=== PATIENT | female | born 1985 | race Caucasian/White ===

== ENCOUNTER 2020-02-04 16:24 | Emergency (ER) | payer SELFPAY ==
[~2020-02-04] VITALS: Ht 175 cm; Wt 97.0 kg
[~2020-02-04 16:24] MED LIST: CEFU500T5 PO; CYCL10TA9 PO; FRS325T; NAPR-1071 PO; NAPR-243 PO; PRD20T PO; TEMA7.5C2 PO; TRM50T PO
[2020-02-04] MEDS ORDERED: KETOROLAC 30 MG/ML VIAL ONE (17:15)
[2020-02-04] MEDS ORDERED: fentaNYL INJECTION 100 MCG/2 ML AMP ONE (17:15)
--- NOTE | 2020-02-04 17:26 | ED Abdominal Pain ---
General Chief Complaint: Abdominal/GI Problems Stated Complaint: ABD SWELLING/PAIN Source of Information: Patient Exam Limitations: No Limitations History of Present Illness Date Seen by Provider: Feb 04, 2020 Time Seen by Provider: 17:24 Initial Comments To ER by EMS to ER by private vehicle from home with reports of severe lower abdominal pain. This was mild upon awakening this morning and got progressively worse throughout the day. Last food intake was 11 AM. No nausea or vomiting. No history of this, no history of abdominal surgeries. Timing/Duration: 12-24 Hours Severity/Quality: Moderate Location: Suprapubic Radiation: No Radiation Activities at Onset: None Allergies and Home Medications Allergies Coded Allergies: NKANo Known Allergies (Unverified Allergy, Mild, 07/23/08) No Known Drug Allergies (Unverified , 04/12/08) Home Medications Cefuroxime Axetil 500 Mg Tablet, 500 MG PO BID Prescribed by: EMIR BELLAMY on 02/04/201816 Cyclobenzaprine HCl 10 Mg Tablet, 10 MG PO Q8H, (Reported) Hyoscyamine Sulfate 0.125 Mg Tab.subl, 0.125 MG SL Q4H PRN for abdominal pain Prescribed by: EMIR BELLAMY on 02/04/201816 Naproxen 500 Mg Tablet, 500 MG PO BID Prescribed by: DEWEY MARIN on 08/31/151928 Prednisone 20 Mg Tab, 40 MG PO DAILY Prescribed by: DEWEY MARIN on 08/31/151928 Tramadol HCl 50 Mg Tablet, 50 MG PO Q4H PRN for PAIN Prescribed by: DEWEY MARIN on 08/31/15 193 Patient Home Medication List Home Medication List Reviewed: Yes Review of Systems Review of Systems Constitutional: see HPI EENTM: No Symptoms Reported Respiratory: No Symptoms Reported Cardiovascular: No Symptoms Reported Gastrointestinal: See HPI, Abdominal Pain Genitourinary: No Symptoms Reported Musculoskeletal: no symptoms reported Skin: no symptoms reported Psychiatric/Neurological: No Symptoms Reported Past Gyahrau-Lofxgi-Begqfr Hx Patient Social History Recent Foreign Travel: No Contact w/Someone Who Travel: No Past Medical History Reproductive Disorders: No Family Medical History No Pertinent Family Hx Physical Exam Vital Signs Vital Signs - First Documented 02/04/20 17:15 Temp 37.2 Pulse 92 Resp 24 B/P (MAP) 147/81 (103) Capillary Refill : Height/Weight/BMI Height: 5'9" Weight: 200lbs. oz. 90.822275vw; BMI Method:Stated General Appearance: WD/WN, moderate distress Neck: non-tender, full range of motion Respiratory: chest non-tender, no respiratory distress, no accessory muscle use Cardiovascular: no murmur, tachycardia Gastrointestinal: normal bowel sounds, soft, tenderness Extremities: normal range of motion, non-tender Neurologic/Psychiatric: alert, normal mood/affect, oriented x 3 Skin: normal color, warm/dry Progress/Results/Core Measures Results/Orders Lab Results Laboratory Tests Test 02/04/20 17:20 02/04/20 17:50 Range/Units White Blood Count 16.4 H 4.3-11.0 10^3/uL Red Blood Count 4.40 3.80-5.11 10^6/uL Hemoglobin 13.2 11.5-16.0 g/dL Hematocrit 40 35-52 % Mean Corpuscular Volume 91 80-99 fL Mean Corpuscular Hemoglobin 30 25-34 pg Mean Corpuscular Hemoglobin Concent 33 32-36 g/dL Red Cell Distribution Width 12.2 10.0-14.5 % Platelet Count 297 130-400 10^3/uL Mean Platelet Volume 10.8 9.0-12.2 fL Immature Granulocyte % (Auto) 0 % Neutrophils (%) (Auto) 84 H 42-75 % Lymphocytes (%) (Auto) 9 L 12-44 % Monocytes (%) (Auto) 6 0-12 % Eosinophils (%) (Auto) 1 0-10 % Basophils (%) (Auto) 0 0-10 % Neutrophils # (Auto) 13.7 H 1.8-7.8 10^3/uL Lymphocytes # (Auto) 1.5 1.0-4.0 10^3/uL Monocytes # (Auto) 0.9 0.0-1.0 10^3/uL Eosinophils # (Auto) 0.1 0.0-0.3 10^3/uL Basophils # (Auto) 0.0 0.0-0.1 10^3/uL Immature Granulocyte # (Auto) 0.1 0.0-0.1 10^3/uL Neutrophils % (Manual) 83 % Lymphocytes % (Manual) 13 % Monocytes % (Manual) 3 % Eosinophils % (Manual) 1 % Blood Morphology Comment NORMAL Sodium Level 139 135-145 MMOL/L Potassium Level 3.5 L 3.6-5.0 MMOL/L Chloride Level 105 98-107 MMOL/L Carbon Dioxide Level 22 21-32 MMOL/L Anion Gap 12 5-14 MMOL/L Blood Urea Nitrogen 11 7-18 MG/DL Creatinine 0.77 0.60-1.30 MG/DL Estimat Glomerular Filtration Rate > 60 BUN/Creatinine Ratio 14 Glucose Level 94 70-105 MG/DL Calcium Level 9.1 8.5-10.1 MG/DL Corrected Calcium 8.5-10.1 MG/DL Total Bilirubin 1.0 0.1-1.0 MG/DL Aspartate Amino Transf (AST/SGOT) 16 5-34 U/L Alanine Aminotransferase (ALT/SGPT) 18 0-55 U/L Alkaline Phosphatase 48 40-136 U/L Total Protein 7.8 6.4-8.2 GM/DL Albumin 4.7 H 3.2-4.5 GM/DL Serum Test, Qualitative NEGATIVE NEGATIVE Urine Color YELLOW Urine Clarity CLEAR Urine pH 5.5 5-9 Urine Specific [place] 1.010 L 1.016-1.022 Urine Protein NEGATIVE NEGATIVE Urine Glucose (UA) NEGATIVE NEGATIVE Urine Ketones NEGATIVE NEGATIVE Urine Nitrite NEGATIVE NEGATIVE Urine Bilirubin NEGATIVE NEGATIVE Urine Urobilinogen 0.2 < = 1.0 MG/DL Urine Leukocyte Esterase 3+ H NEGATIVE Urine RBC (Auto) 3+ H NEGATIVE Urine RBC 2-5 H /HPF Urine WBC 25-50 H /HPF Urine Crystals PRESENT H /LPF Urine Amorphous Sediment FEW LUMA URATES H /LPF Urine Bacteria FEW H /HPF Urine Casts NONE /LPF Urine Mucus NEGATIVE /LPF Urine Culture Indicated YES My Orders Orders - EMIR BELLAMY APRN Fentanyl Injection (Sublimaze Injection (02/04/20 17:15) Ketorolac Injection (Toradol Injection) (02/04/20 17:15) Ketorolac Injection (Toradol Injection) (02/04/20 17:30) Fentanyl Injection (Sublimaze Injection (02/04/20 17:30) Cbc With Automated Diff (02/04/20 17:20) Hcg,Qualitative Serum (02/04/20 17:20) Comprehensive Metabolic Panel (02/04/20 17:20) Ua Culture If Indicated (02/04/20 17:20) Ed Iv/Invasive Line Start (02/04/20 17:20) Ct Abd/Pelvis Wo(Kidney Stone) (02/04/20 17:20) Ketorolac Injection (Toradol Injection) (02/04/20 17:30) Fentanyl Injection (Sublimaze Injection (02/04/20 17:30) Manual Differential (02/04/20 17:20) Ns Iv 1000 Ml (Sodium Chloride 0.9%) (02/04/20 18:00) Urine Culture (02/04/20 17:50) Ceftriaxone For Iv Use (Rocephin For I (02/04/20 18:15) Phenazopyridine Tablet (Pyridium Tablet) (02/04/20 18:15) Hyoscyamine Sl Tablet (Levsin Sl Tablet) (02/04/20 18:31) Medications Given in ED Current Medications Medications Dose Ordered Sig/Ken Route Start Time Stop Time Status Last Admin Dose Admin Ceftriaxone Sodium 1000 mg/ Sterile Water 10 ml @ 200 mls/hr ONCE ONCE IV 02/04/20 18:15 02/04/20 18:17 DC 02/04/20 18:31 200 MLS/HR Fentanyl Citrate 50 mcg ONCE ONCE IVP 02/04/20 17:30 02/04/20 17:31 DC 02/04/20 17:15 50 MCG Hyoscyamine Sulfate 0.125 mg STK-MED ONCE .ROUTE 02/04/20 18:31 02/04/20 18:34 DC 02/04/20 18:36 0.125 MG Ketorolac Tromethamine 15 mg ONCE ONCE IVP 02/04/20 17:30 02/04/20 17:31 DC 02/04/20 17:15 15 MG Phenazopyridine HCl 100 mg ONCE ONCE PO 02/04/20 18:15 02/04/20 18:16 DC 02/04/20 18:31 100 MG Vital Signs/I&O 02/04/20 17:15 Temp 37.2 Pulse 92 Resp 24 B/P (MAP) 147/81 (103) Diagnostic Imaging Diagonstic Imaging: CT Comments NAME: CASANDRANUVIA D MED REC#: [id number] PT STATUS: REG ER : 1985 PHYSICIAN: EMIR BELLAMY APRN ADMIT DATE: 02/04/20/ER Draft Date of Exam:02/04/20 CT ABD/PELVIS WO(KIDNEY STONE) PROCEDURE: CT urinary tract, rule out kidney stone. TECHNIQUE: Multiple contiguous axial images were obtained through the abdomen and pelvis without the use of intravenous contrast. Auto Exposure Controls were utilized during the CT exam to meet ALARA standards for radiation dose reduction. INDICATION: Bilateral anterior and posterior abdominal pain, history of kidney stones. EXAMINATION: CT abdomen and pelvis without contrast 02/04/2020 FINDINGS: No nephrolithiasis, hydronephrosis nor ureteral stones appreciated on either side. The nonopacified remaining abdominal viscera demonstrate no gross acute abnormality within the liver or adrenal glands. There is a low-density lesion subcentimeter in nature within the posterior tail of the pancreas, possibly a small fatty lesion; this could be followed with contrast non-emergently for further characterization. There is splenomegaly. Gallbladder is normal. There are diffusely thick walled small bowel loops throughout the abdomen suggesting enteritis. The appendix is normal. There is no ascites or free air. Urinary bladder is distended perhaps due to timing in imaging; correlate clinically. There is no adenopathy. No acute osseous abnormality. IMPRESSION: 1. Abnormal appearing small bowel loops suggesting enteritis; correlate with symptoms. 2. Mild splenomegaly of uncertain etiology 3. Tiny hypodensity within the pancreas likely a focal fatty lesion; see above discussion and recommendations. Dictated on workstation # [id number] Dict: 02/04/20 1749 Trans: 02/04/20 1759 [facility] [id number] Interpreted by: JAMES HOPPER MD Electronically signed by: Departure Impression Primary Impression: UTI (urinary tract infection) Additional Impression: Enteritis Disposition: 01 HOME, SELF-CARE Condition: Stable Departure-Patient Inst. Decision time for Depature: 18:15 Referrals: [facility] (PCP/Family) Primary Care Physician Patient Instructions: Urinary Tract Infection, Adult (DC) Add. Discharge Instructions: 1. Antibiotics as directed. 2. Follow-up with your doctor next week for recheck. Return to ER for any worsening. During your visit next week you will need to discuss the slightly abnormal appearance of a small part of the tail of the pancreas which needs further imaging including a CAT scan WITH IV contrast to further evaluate. 3. Emergency department focuses on treating and ruling out life-threatening diseases. Whenever possible, a diagnosis is given. However, most patients are given an impression based on their history, physical exam, and workup during your brief time in the ER. Information about probable diagnosis and other educational material has been provided. Please take the time to read and understand this information. It is very important that you follow up with a physician as discussed during the visit today. Failure to adhere to your follow-up instructions may lead to severe disability, injury, or so please make sure to keep your appointments or obtain one as requested. All discharge instructions reviewed with patient and/or family. Voiced understanding. Scripts Cephalexin (Keflex) 500 Mg Capsule 500 MG PO TID, #15 CAP Prov: EMIR BELLAMY APRN 02/04/20 Hyoscyamine Sulfate (Levsin-Sl) 0.125 Mg Tab.subl 0.125 MG SL Q4H PRN for abdominal pain, #10 TAB 0 Refills Prov: EMIR BELLAMY APRN 02/04/20 EMIR BELLAMY APRN Feb 04, 2020 17:26
[2020-02-04] MEDS ORDERED: fentaNYL INJECTION 100 MCG/2 ML AMP IVP ONE ×2 (17:30)
[2020-02-04] MEDS ORDERED: KETOROLAC 15 MG/ML VIAL IVP ONE (17:30)
[2020-02-04] MEDS ORDERED: KETOROLAC 30 MG/ML VIAL IVP ONE (17:30)
[2020-02-04 17:32] LABS: BASOPHILS % (AUTO) 0 % (0-10); EOSINOPHILS # (AUTO) 0.1 10^3/uL (0.0-0.3); EOSINOPHILS % (AUTO) 1 % (0-10); HEMATOCRIT 40 % (35-52); HEMOGLOBIN 13.2 g/dL (11.5-16.0); LYMPHOCYTES # (AUTO) 1.5 10^3/uL (1.0-4.0); LYMPHOCYTES % (AUTO) 9 % (12-44); MEAN CORPUSCULAR HEMOGLOBIN 30 pg (25-34); MEAN CORPUSCULAR HGB CONC 33 g/dL (32-36); MEAN CORPUSCULAR VOLUME 91 fL (80-99); MEAN PLATELET VOLUME 10.8 fL (9.0-12.2); MONOCYTES # (AUTO) 0.9 10^3/uL (0.0-1.0); MONOCYTES % (AUTO) 6 % (0-12); NEUTROPHILS # (AUTO) 13.7 10^3/uL (1.8-7.8); NEUTROPHILS % (AUTO) 84 % (42-75); PLATELET COUNT 297 10^3/uL (130-400); WHITE BLOOD COUNT 16.4 10^3/uL (4.3-11.0)
--- NOTE | 2020-02-04 17:42 | NUR ---
PAIN MUCH IMPROVED RESTING IN BED
[2020-02-04 17:47] LABS: ALBUMIN 4.7 GM/DL (3.2-4.5); CHLORIDE 105 MMOL/L (98-107); POTASSIUM 3.5 MMOL/L (3.6-5.0); SODIUM 139 MMOL/L (135-145)
[2020-02-04 17:48] LABS: CALCIUM 9.1 MG/DL (8.5-10.1)
[2020-02-04 17:49] LABS: GLUCOSE 94 MG/DL (70-105); TOTAL PROTEIN 7.8 GM/DL (6.4-8.2)
[2020-02-04 17:50] LABS: CARBON DIOXIDE 22 MMOL/L (21-32)
[2020-02-04 17:53] LABS: ALKALINE PHOSPHATASE 48 U/L (40-136); CREATININE SERUM 0.77 MG/DL (0.60-1.30); GFR ESTIMATED > 60
[2020-02-04 17:54] LABS: BUN/CREATININE RATIO 14
[2020-02-04 17:56] LABS: ALANINE AMINOTRANSFERASE 18 U/L (0-55)
[2020-02-04 17:59] LABS: BILIRUBIN,URINE NEGATIVE (NEGATIVE); CLARITY,URINE CLEAR; COLOR,URINE YELLOW; GLUCOSE, URINE (UA) NEGATIVE (NEGATIVE); KETONES,URINE NEGATIVE (NEGATIVE); LEUKOCYTE ESTERASE ,URINE 3+ (NEGATIVE); NITRITE,URINE NEGATIVE (NEGATIVE); PH,URINE 5.5 (5-9); PROTEIN,URINE NEGATIVE (NEGATIVE)
[2020-02-04] MEDS ORDERED: NS IV 1000 ML 1,000 ML IV SCH (18:00)
--- NOTE | 2020-02-04 18:00 | Diagnostic Imaging Report ---
PROCEDURE: CT urinary tract, rule out kidney stone. TECHNIQUE: Multiple contiguous axial images were obtained through the abdomen and pelvis without the use of intravenous contrast. Auto Exposure Controls were utilized during the CT exam to meet ALARA standards for radiation dose reduction. INDICATION: Bilateral anterior and posterior abdominal pain, history of kidney stones. EXAMINATION: CT abdomen and pelvis without contrast 02/04/2020 FINDINGS: No nephrolithiasis, hydronephrosis nor ureteral stones appreciated on either side. The nonopacified remaining abdominal viscera demonstrate no gross acute abnormality within the liver or adrenal glands. There is a low-density lesion subcentimeter in nature within the posterior tail of the pancreas, possibly a small fatty lesion; this could be followed with contrast non-emergently for further characterization. There is splenomegaly. Gallbladder is normal. There are diffusely thick walled small bowel loops throughout the abdomen suggesting enteritis. The appendix is normal. There is no ascites or free air. Urinary bladder is distended perhaps due to timing in imaging; correlate clinically. There is no adenopathy. No acute osseous abnormality. IMPRESSION: 1. Abnormal appearing small bowel loops suggesting enteritis; correlate with symptoms. 2. Mild splenomegaly of uncertain etiology 3. Tiny hypodensity within the pancreas likely a focal fatty lesion; see above discussion and recommendations. Dictated by: Dictated on workstation # [id number]
[2020-02-04 18:11] LABS: AMORPHOUS SEDIMENT,UR FEW AMOR URATES /LPF; BACTERIA,URINE FEW /HPF; WBC,URINE 25-50 /HPF
[2020-02-04] MEDS ORDERED: cefTRIAXone FOR IV USE 1,000 MG in WATER (STERILE) FOR INJECTION 10 ML IV ONE (18:15)
[2020-02-04] MEDS ORDERED: PHENAZOPYRIDINE 100 MG (PYRIDIUM) TABLET PO ONE (18:15)
[2020-02-04] MEDS ORDERED: CEFU500T63 PO (18:17)
[2020-02-04] MEDS ORDERED: HYOS0.1283 SL (18:17)
[2020-02-04] MEDS ORDERED: HYOSCYAMINE 0.125 MG (LEVSIN) TAB ONE (18:31)
[2020-02-04 18:43] LABS: EOSINOPHILS % (MANUAL) 1 %; LYMPHOCYTES % (MANUAL) 13 %; MONOCYTES % (MANUAL) 3 %; NEUTROPHILS % (MANUAL) 83 %; RBC MORPH NORMAL
[2020-02-04 19:05] VITALS: BP 130/62
[2020-02-04] MEDS ORDERED: CEPH-507 PO (19:10)
== END 2020-02-04 19:09 | disposition home or self-care (01) ==
LOC: EDUNIT# 16:24 → ER 16:26
DX: N39.0 Urinary tract infection, site not specified (principal); K52.9 Noninfective gastroenteritis and colitis, unspecified; Z79.52 Long term (current) use of systemic steroids
CPT/HCPCS: 36415; 74176; 80053; 81000; 84703; 85007; 85027; 87088

== ENCOUNTER → 2020-05-16 | Outpatient (CLI) | payer OTHER ==
[~2020-05-16] MED LIST changes: +CATHETER FLUSH 10 ML SYR IV PRN; +CEFU500T63 PO; +CEPH-507 PO; +HOLD METFORMIN - RECEIVED CONTRAST 20 ML VIAL IV SCH; +HYOS0.1283 SL; +IOHEXOL 350 MG/ML 100 ML (OMNIPAQUE 350) VIAL IV ONE; +NS 100 ML (IVPB) BAG IV ONE
--- NOTE | 2020-05-16 09:14 | Diagnostic Imaging Report ---
EXAMINATION: CT Abdomen and Pelvis with intravenous contrast. TECHNIQUE: Multiple contiguous axial images were obtained through the abdomen and pelvis after the uneventful administration of intravenous contrast. All CT scans use one or more of the following dose optimizing techniques: automated exposure control, MA and/or KvP adjustment based on a patient size and exam type, or iterative reconstruction. HISTORY: Pancreatic cyst. Follow-up. COMPARISON: 02/04/2020. FINDINGS: The heart is unremarkable. The included lung bases are clear. Stable small focus of fatty density within the body of the pancreas without associated enhancement. No enhancing pancreatic lesions are seen. No pancreatic ductal dilation or peripancreatic inflammation. A hypoattenuating lesion is seen in the left hepatic lobe with nodular and centripetal enhancement measuring 2.3 x 1.8 cm, consistent with hemangioma. No other focal hepatic lesions are seen. The portal vein is patent. The gallbladder is unremarkable. The spleen, adrenal glands, and kidneys have an unremarkable appearance without acute abnormality. Stable simple cortical cyst is seen in the mid left kidney. There is no pathologically enlarged mesenteric or retroperitoneal adenopathy. The bowel loops are nondilated. The appendix is visualized in the right lower quadrant has a normal appearance. There is no free fluid or free air. No acute osseous abnormalities. Limbus vertebrae is noted at L3. Ureters and bladder are grossly normal. Dominant follicle/cyst is seen in the right ovary. There is no free air, loculated collection, or adenopathy in the pelvis. IMPRESSION: 1. No suspicious lesions are seen in the pancreas. Stable small focus of fat density within the body of the pancreas. 2. Findings consistent with hemangioma in the left hepatic lobe. Dictated by: Dictated on workstation # [id number]
== END ==
LOC: RAD 08:14
PROVIDERS: ATTEND Nurse Practitioner
DX: K86.2 Cyst of pancreas (principal); D18.09 Hemangioma of other sites
CPT/HCPCS: 74177

== ENCOUNTER 2020-07-31 13:13 | Emergency (ER) | payer SELFPAY ==
[~2020-07-31] VITALS: Ht 175.2 cm; Wt 99.0 kg
[~2020-07-31 13:13] MED LIST changes: -CATHETER FLUSH 10 ML SYR IV PRN; -HOLD METFORMIN - RECEIVED CONTRAST 20 ML VIAL IV SCH; -IOHEXOL 350 MG/ML 100 ML (OMNIPAQUE 350) VIAL IV ONE; -NS 100 ML (IVPB) BAG IV ONE
[2020-07-31] MEDS ORDERED: ASPIRIN 81 MG CHEW (CHILDREN'S ASA) ONE (13:18)
--- NOTE | 2020-07-31 13:28 | ED Chest Pain ---
General Chief Complaint: Chest Pain Stated Complaint: CP History of Present Illness Date Seen by Provider: Jul 31, 2020 Time Seen by Provider: 13:14 Initial Comments Patient is a 35-year-old to the emergency department today with a chief complaint of midsternal chest pain. Patient states the chest pain felt like a "tightness" sitting in the center of her chest. It did not radiate. 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 She states it lasted about 15 minutes and she felt a little short of breath and dizzy with it. Patient states that she has had the same pain occur randomly off and on over the course of the last 6 months. She can be at rest or exerting herself and the pain will last anywhere from minutes to 30 minutes. She has never had any diaphoresis or nausea or vomiting or radiation of the pain. She is a non-smoker. She is not treated for any hypertension hypercholesterolemia or diabetes. She has no family history of early coronary artery disease. Patient denies any recent p rolonged immobility or travel. No recent fevers, chills, cough or congestion. No abdominal pain, vomiting or diarrhea. No genitourinary complaints other than she states she has "shingles" in her vagina at this time. All other review of systems reviewed and negative except as stated above. 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: No Associated Symptoms: dizziness, shortness of breath Allergies and Home Medications Allergies Coded Allergies: NKANo Known Allergies (Unverified Allergy, Mild, 07/23/08) No Known Drug Allergies (Unverified , 04/12/08) Home Medications Cephalexin 500 Mg Capsule, 500 MG PO TID Prescribed by: EMIR BELLAMY on 02/04/201909 Cyclobenzaprine HCl 10 Mg Tablet, 10 MG PO Q8H, (Reported) Hyoscyamine Sulfate 0.125 Mg Tab.subl, 0.125 MG SL Q4H PRN for abdominal pain Prescribed by: EMIR BELLAMY on 02/04/201816 Naproxen 500 Mg Tablet, 500 MG PO BID Prescribed by: DEWEY MARIN on 08/31/151928 Prednisone 20 Mg Tab, 40 MG PO DAILY Prescribed by: DEWEY MARIN on 08/31/151928 Tramadol HCl 50 Mg Tablet, 50 MG PO Q4H PRN for PAIN Prescribed by: DEWEY MARIN on 08/31/15 193 Patient Home Medication List Home Medication List Reviewed: Yes Review of Systems Review of Systems Constitutional: see HPI EENTM: No Symptoms Reported Respiratory: No Symptoms Reported Cardiovascular: Chest Pain Gastrointestinal: No Symptoms Reported Genitourinary: No Symptoms Reported Musculoskeletal: no symptoms reported Skin: other (Shingles rash in her vaginal area) Psychiatric/Neurological: No Symptoms Reported All Other Systems Reviewed Negative Unless Noted: Yes Past Wtovepn-Ggawoi-Rnxuxp Hx Patient Social History Alcohol Use: Denies Use 2nd Hand Smoke Exposure: No Recent Hopitalizations: No Past Medical History Surgeries: Yes (cervical scraping 2008) Respiratory: No Cardiac: No Neurological: No Reproductive Disorders: No Gastrointestinal: No Musculoskeletal: No Endocrine: No Cancer: No Psychosocial: No Blood Disorders: No Family Medical History No Pertinent Family Hx Physical Exam Vital Signs Vital Signs - First Documented Capillary Refill : Less Than 3 Seconds Height, Weight, BMI Height: 5'9" Weight: 200lbs. oz. 90.276230ew; 31.00 BMI Method:Stated General Appearance: No Apparent Distress, WD/WN HEENT: PERRL/EOMI Respiratory: Chest Non Tender, Lungs Clear, Normal Breath Sounds, No Accessory Muscle Use, No Respiratory Distress Cardiovascular: Regular Rate, Rhythm, Normal Peripheral Pulses Gastrointestinal: Non Tender, Soft Neurologic/Psychiatric: Alert, Oriented x3, No Motor/Sensory Deficits, Normal Mood/Affect Skin: Normal Color, Warm/Dry Progress/Results/Core Measures Results/Orders Lab Results Laboratory Tests Test 07/31/20 13:32 Range/Units White Blood Count 6.6 4.3-11.0 10^3/uL Red Blood Count 3.87 3.80-5.11 10^6/uL Hemoglobin 12.1 11.5-16.0 g/dL Hematocrit 35 35-52 % Mean Corpuscular Volume 89 80-99 fL Mean Corpuscular Hemoglobin 31 25-34 pg Mean Corpuscular Hemoglobin Concent 35 32-36 g/dL Red Cell Distribution Width 12.8 10.0-14.5 % Platelet Count 254 130-400 10^3/uL Mean Platelet Volume 11.0 9.0-12.2 fL Immature Granulocyte % (Auto) 0 % Neutrophils (%) (Auto) 70 42-75 % Lymphocytes (%) (Auto) 22 12-44 % Monocytes (%) (Auto) 6 0-12 % Eosinophils (%) (Auto) 1 0-10 % Basophils (%) (Auto) 1 0-10 % Neutrophils # (Auto) 4.7 1.8-7.8 10^3/uL Lymphocytes # (Auto) 1.5 1.0-4.0 10^3/uL Monocytes # (Auto) 0.4 0.0-1.0 10^3/uL Eosinophils # (Auto) 0.1 0.0-0.3 10^3/uL Basophils # (Auto) 0.0 0.0-0.1 10^3/uL Immature Granulocyte # (Auto) 0.0 0.0-0.1 10^3/uL Sodium Level 139 135-145 MMOL/L Potassium Level 3.6 3.6-5.0 MMOL/L Chloride Level 106 98-107 MMOL/L Carbon Dioxide Level 21 21-32 MMOL/L Anion Gap 12 5-14 MMOL/L Blood Urea Nitrogen 13 7-18 MG/DL Creatinine 0.74 0.60-1.30 MG/DL Estimat Glomerular Filtration Rate > 60 BUN/Creatinine Ratio 18 Glucose Level 89 70-105 MG/DL Calcium Level 9.3 8.5-10.1 MG/DL Total Creatine Kinase 61 29-168 U/L Creatine Kinase MB 0.6 <6.6 NG/ML Troponin I < 0.028 <0.028 NG/ML My Orders Orders - ANNELIESE IBARRA MD Aspirin Chewable Tablet (Baby Aspirin Ch (07/31/20 13:18) Aspirin Chewable Tablet (Baby Aspirin Ch (08/01/20 09:00) Ed Iv/Invasive Line Start (07/31/20 13:35) Cbc With Automated Diff (07/31/20 13:35) Basic Metabolic Panel (07/31/20 13:35) Troponin I (07/31/20 13:35) Creatine Kinase Mb (07/31/20 13:35) Creatine Kinase (07/31/20 13:35) Chest 1 View, Ap/Pa Only (07/31/20 13:35) Urine Bedside (07/31/20 13:35) Ekg Tracing (07/31/20 13:35) Medications Given in ED Current Medications Medications Dose Ordered Sig/Ken Route Start Time Stop Time Status Last Admin Dose Admin Aspirin 81 mg STK-MED ONCE .ROUTE 07/31/20 13:18 07/31/20 13:26 DC 07/31/20 13:30 324 MG Vital Signs/I&O 07/31/20 07/31/20 13:17 13:17 Temp 36.4 Pulse 103 Resp 27 B/P (MAP) Pulse Ox 96 O2 Delivery Room Air Room Air Progress Progress Note : Time: 14:27 Progress Note Patient seen and examined, 35-year-old with a chief complaint of midsternal chest pain. Patient evaluation today includes a physical exam, CBC, BMP, cardiac enzyme profile, EKG and chest x-ray. Patient's work-up has been reviewed and is reassuring and all within normal limits. She has no ST changes on her EKG, no evidence of infiltrate or effusion or other acute pathology on chest x-ray. All of her labs are in the normal range. Patient has had no further episodes of her chest pain here in the department. She sees a practitioner [facility] at [facility]. She states she last saw her about 2 weeks ago. I have recommended that the patient follow-up regarding this specific chest pain. She asked me about if her symptoms could possibly be related to acid reflux. I did advise her that yes this was a possibility and to talk to her primary practitioner about this. She may need to increase the medication that she is already on or change it. Patient verbalizes understanding, she is comfortable with discharge. All questions have been sought and answered. Initial ECG Impression Date: Jul 31, 2020 Initial ECG Impression Time: 13:15 Initial ECG Rate: 83 Initial ECG Rhythm: Normal Sinus Initial ECG Impression: Normal Initial ECG Comparisson: No Previous ECG Available Diagnostic Imaging Diagonstic Imaging: Xray Plain Films/CT/US/NM/MRI: chest Comments [facility] [place] NAME: NUVIA GUAJARDO Mick [facility] REC#: [id number] PT STATUS: REG ER : 1985 PHYSICIAN: ANNELIESE IBARRA MD ADMIT DATE: 07/31/20/ER Signed Date of Exam:07/31/20 CHEST 1 VIEW, AP/PA ONLY Indication: Chest pain Portable chest 2:00 PM Heart size and pulmonary vascularity are normal. Lungs are clear. There are no effusions or pneumothoraces. IMPRESSION: Negative chest Dictated by: Dictated on workstation # [id number] Dict: 07/31/20 1403 Trans: 07/31/20 1403 TCB [id number] Interpreted by: REAL VARELA MD Electronically signed by: REAL VARELA MD 07/31/20 1403 Departure Impression Primary Impression: Chest pain Qualified Codes: R07.9 - Chest pain, unspecified Disposition: HOME, SELF-CARE Condition: Stable Departure-Patient Inst. Decision time for Depature: 14:26 Referrals: [facility] (PCP) Primary Care Physician ANALI DIXON APRN (Family) Primary Care Physician Patient Instructions: Chest Pain That Is Not Caused by the Heart (DC) Add. Discharge Instructions: Drink plenty of fluids to stay well-hydrated. Talk to your practitioner at [facility] to decide whether or not you need to increase your dosage of acid reflux medication or possibly change it. Come back to the emergency room for any return of chest pain especially pain associated with shortness of breath, nausea vomiting, sweating or any other emergent concerning symptoms. ANNELIESE IBARRA MD Jul 31, 2020 13:28
[2020-07-31] MEDS: ASPIRIN 81 MG CHEW (CHILDREN'S ASA) PO SCH ×2 (13:31→13:36)
[2020-07-31 13:40] LABS: BASOPHILS % (AUTO) 1 % (0-10); EOSINOPHILS # (AUTO) 0.1 10^3/uL (0.0-0.3); EOSINOPHILS % (AUTO) 1 % (0-10); HEMATOCRIT 35 % (35-52); HEMOGLOBIN 12.1 g/dL (11.5-16.0); LYMPHOCYTES # (AUTO) 1.5 10^3/uL (1.0-4.0); LYMPHOCYTES % (AUTO) 22 % (12-44); MEAN CORPUSCULAR HEMOGLOBIN 31 pg (25-34); MEAN CORPUSCULAR HGB CONC 35 g/dL (32-36); MEAN CORPUSCULAR VOLUME 89 fL (80-99); MONOCYTES # (AUTO) 0.4 10^3/uL (0.0-1.0); MONOCYTES % (AUTO) 6 % (0-12); NEUTROPHILS # (AUTO) 4.7 10^3/uL (1.8-7.8); NEUTROPHILS % (AUTO) 70 % (42-75); PLATELET COUNT 254 10^3/uL (130-400); WHITE BLOOD COUNT 6.6 10^3/uL (4.3-11.0)
[2020-07-31 13:51] LABS: CHLORIDE 106 MMOL/L (98-107); POTASSIUM 3.6 MMOL/L (3.6-5.0); SODIUM 139 MMOL/L (135-145)
[2020-07-31 13:52] LABS: CALCIUM 9.3 MG/DL (8.5-10.1); GLUCOSE 89 MG/DL (70-105)
[2020-07-31 13:54] LABS: CARBON DIOXIDE 21 MMOL/L (21-32)
[2020-07-31 13:56] LABS: CREATININE SERUM 0.74 MG/DL (0.60-1.30); GFR ESTIMATED > 60
[2020-07-31 13:57] LABS: BUN/CREATININE RATIO 18
[2020-07-31 13:59] LABS: CREATINE KINASE 61 U/L (29-168)
[2020-07-31 14:04] LABS: CREATINE KINASE MB 0.6 NG/ML (<6.6)
--- NOTE | 2020-07-31 14:04 | Diagnostic Imaging Report ---
Indication: Chest pain Portable chest 2:00 PM Heart size and pulmonary vascularity are normal. Lungs are clear. There are no effusions or pneumothoraces. IMPRESSION: Negative chest Dictated by: Dictated on workstation # [id number]
[2020-07-31 14:42] VITALS: BP 127/76
== END 2020-07-31 14:43 | disposition home or self-care (01) ==
LOC: EDUNIT# 13:13 → ER 13:15
DX: R07.9 Chest pain, unspecified (principal); Z79.52 Long term (current) use of systemic steroids
CPT/HCPCS: 36415; 71045; 80048; 82550; 82553; 84484; 84703; 85025; 93005

== ENCOUNTER → 2022-09-29 | Outpatient (CLI) | payer BC ==
[~2022-09-29] MED LIST changes: +CYCL10TA25 PO; -CYCL10TA9 PO
--- NOTE | 2022-09-29 17:25 | Diagnostic Imaging Report ---
PROCEDURE: US non-OB pelvis comp/trans. TECHNIQUE: Multiple real-time grayscale images were obtained of the pelvis in various projections endovaginally. Transabdominal imaging was also performed. INDICATION: Irregular menses. COMPARISON: None. FINDINGS: Uterus is anteverted and measures 9.8 x 6 x 5 cm. No suspicious myometrial masses are seen. Endometrial stripe is within normal limits at 6 mm in AP thickness. Visualized portions of the cervix are unremarkable. Anechoic benign-appearing right ovarian cyst is identified and measures 4.5 x 2.2 x 2.5 cm. As a whole, right ovary measures 4 x 3 x 5 cm. Left ovary has a normal sonographic appearance and measures 2.8 x 2.2 x 1.5 cm. No adnexal masses or free fluid are seen. IMPRESSION: 1. Anechoic benign-appearing right ovarian cyst. 2. Otherwise, unremarkable pelvic sonogram. Dictated by: Dictated on workstation # [id number]
== END ==
LOC: RAD 14:35
PROVIDERS: ATTEND Obstetrics & Gynecology
DX: N83.291 Other ovarian cyst, right side (principal); N93.9 Abnormal uterine and vaginal bleeding, unspecified
CPT/HCPCS: 76830; 76856